=== PATIENT | male | born 1985 | race African-American/Black ===

== ENCOUNTER 2017-08-10 11:39 | Emergency (ER) | payer BC ==
[2017-08-10] MEDS ORDERED: Lidocaine 1% 20 ML MDV ONE (12:00)
[2017-08-10] MEDS ORDERED: Doxycycline 100 MG CAP ONE (12:00)
[2017-08-10] MEDS ORDERED: cefTRIAXone\\ROCEPHIN 250 MG VIAL ONE (12:00)
[2017-08-10 12:15] LABS: Bilirubin Negative (Negative); Blood, Urine Trace (Negative); Clarity Slightly Cloudy (Clear); Glucose, Urine (Dipstick) Negative (Negative); Leukocyte Trace (Negative); Nitrite Negative (Negative); Protein, Urine (Dipstick) Trace mg/dL (Neg-Trace)
[2017-08-10 12:17] LABS: Specific Gravity, Urine 1.028 (1.002-1.036)
[2017-08-10 12:23] LABS: RBC/HPF 0-3 HPF (0-3); WBC/HPF 21-50 HPF (0-3)
[2017-08-10 12:24] LABS: Bacteria/HPF None Seen HPF (None Seen); Hyaline Casts/LPF 0-3 HYALINE CAST LPF (0-3 Hyaline); Squamous Epithelial 0-3 HPF (0-3)
[2017-08-11 21:56] LABS: Chlamydia by PCR Not Detected (NotDetected); GC by PCR Not Detected (NotDetected)
== END 2017-08-10 12:33 | disposition home or self-care (01) ==
LOC: NAV ERS 11:39
DX: N34.1 Nonspecific urethritis (principal); Z71.6 Tobacco abuse counseling; F17.210 Nicotine dependence, cigarettes, uncomplicated
CPT/HCPCS: 81003; 81015; 87491; 87591; 96372; 99406; J0696; J2001